=== PATIENT | female | born 2000 | race Two or more races ===

== ENCOUNTER 2024-07-05 11:58 | Emergency (ER) | payer SELFPAY ==
[2024-07-05 11:59] VITALS: BP 125/77; PULSE 57; RESP 14; TEMP 36.7; O2SAT 100; BMI 24.0
--- NOTE | 2024-07-05 12:21 | EX.ED.VIS.HA ---
HPI <RIGOBERTO Pacheco - Last Filed: 07/05/24 14:25> History of Present Illness Chief Complaint: Headache Narrative Narrative: 23-year-old female presents with a headache. Her spouse interprets. Over the last few weeks she has had an intermittent headache that can be in both temples or the occipital region. She has been to urgent care twice and he shows me a paper where she was treated with ibuprofen and an IM Benadryl shot. She was last treated 4 days ago and the headache resolved but it came back last night and is gradually worsened throughout the day with an episode of vomiting. She tried aspirin without relief. No visual changes or focal motor or sensory changes. No fever, chills, neck pain, or infectious symptoms. They were told by the urgent care if she gets a headache again to be seen in the emergency room. Patient moved here from [facility] 2 months ago. She did have mild headaches back then but spouse states they have gotten worse since moving here. She is not on any prescription medications. PFSH <RIGOBERTO Pacheco - Last Filed: 07/05/24 14:25> [facility] Medical History no medical history Home Medications ?Medication ?Instructions ?Recorded ?Last Taken ?Type NK 07/05/24 Unknown History Allergy/AdvReac Type Severity Reaction Status Date / Time No Known Allergies Allergy Verified 07/05/24 11:59 Surgical History no surgical history Social History Smoking Status: Never smoker ROS <RIGOBERTO Pacheco - Last Filed: 07/05/24 14:25> ROS ED ROS Narrative Constitutional: Negative for fever, chills, malaise. Eyes: Negative for visual change. GI: Positive for nausea, vomiting. Neuro: Positive for headache. EXAM <RIGOBERTO Pacheco - Last Filed: 07/05/24 14:25> Physical Exam Narrative Exam Narrative: CONST: Patient sitting in no acute distress. EYES: Normal inspection. PERRL, EOMI. ENT: Normal inspection, moist mucous membranes. NECK: Normal inspection. No meningismus. RESP: No respiratory distress, CTAB. CVS: Regular rate and rhythm, no murmur, no gallop. SKIN: Color normal, no rash, warm, dry, intact. EXTREMITIES: Normal appearance, no pedal edema. NEURO: Alert and answering questions appropriately with her spouse interpreting. Follows commands, moving all extremities, normal finger-nose and [id number]. PSYCH: Normal affect. Const Vital Signs: 07/05/24 11:59 Temperature 98.1 F Temperature Source Temporal Pulse Rate 57 L Respiratory Rate 14 Blood Pressure 125/77 H Blood Pressure Mean 93 Pulse Ox 100 Oxygen Delivery Method Room Air <Dr. Kimo Fried, DO - Last Filed: 07/05/24 14:29> Physical Exam Const Vital Signs: 07/05/24 11:59 Temperature 98.1 F Temperature Source Temporal Pulse Rate 57 L Respiratory Rate 14 Blood Pressure 125/77 H Blood Pressure Mean 93 Pulse Ox 100 Oxygen Delivery Method Room Air MDM <Kaykay Salguero PA - Last Filed: 07/05/24 14:25> MDM MDM Narrative Medical decision making narrative: History gathered from: Patient, spouse Differential: Tension headache, migraine, intracranial process Patient presents with a bitemporal and occipital headache and nausea and vomiting that started last night. She reports history of similar headaches recently being treated at urgent care. She appears well and nontoxic and is afebrile and hemodynamically stable. She has a nonfocal neurological exam. She has no signs of meningitis/encephalitis or infectious symptoms. CT scan of the brain shows no acute findings. She was given a cocktail of IV Toradol, Compazine and Benadryl with improvement. She was discharged home in stable condition. Radiography Diagnostic Testing: Clinical Impression(s) from Imaging Studies Brain CT 07/05/24 13:17 IMPRESSION: Normal unenhanced CT scan of the brain. Electronically Signed: Travis Juarez MD at 13:55 EST Reading Location ID and State: [address] [place] [address] Tel , Service support , <Dr. Kimo Fried, DO - Last Filed: 07/05/24 14:29> MDM Radiography Diagnostic Testing: Clinical Impression(s) from Imaging Studies Brain CT 07/05/24 13:17 IMPRESSION: Normal unenhanced CT scan of the brain. Electronically Signed: Travis Juarez MD at 13:55 EST , Treatment and Re-Evaluation Narrative: I have personally performed a face to face assessment of the patient and have reviewed the VIKAS Note. I performed a substantive portion of the visit including all aspects of the following. My jacobs findings include: History: Patient presents with headache that became worse today. Patient states her headache was over the bilateral parietal areas initially. Patient states she went to urgent care and had injections. Patient states this relieved her pain. Patient states her headache today was more over the occipital area. Patient denies any nausea or vomiting. Patient denies any fevers or chills. Patient denies any neck or back pain. Patient denies any visual changes. Exam: Vital signs are stable. Patient was afebrile. Patient is in no acute distress. Cranial nerves II through XII are intact. Strength is 5/5 bilateral in the upper and lower extremities. There are no sensory deficits noted. Oral mucosa is pink and moist. Neck is supple. Trachea is midline. There is no JVD. Heart was regular rate and rhythm. Lungs are clear and equal bilaterally. Abdomen is soft. Bowel sounds are normal. There is no tenderness. Medical Decision Making: Differential diagnosis includes intracranial bleeding, migraine headache, and tension headache. CT scan of the brain will be obtained to assess for intracranial bleeding. Patient was given injection of Compazine, Benadryl, and Toradol. CT scan of the brain was obtained. There is no acute intracranial abnormality. This was interpreted by the radiologist and was also independently reviewed by myself. Patient was feeling better on reevaluation. Patient states her headache has resolved. Patient was instructed to rest in a dark quiet room. Patient was instructed to follow-up with her primary care physician in 5 to 7 days for further evaluation. Patient and family understood and were agreeable with the plan. All questions were answered. Discharge Plan Triage Chief Complaint: Headache ED Midlevel Provider: Kaykay Salguero ED Provider: Kimo Fried Dx/Rx/DC Orders Clinical Impression: Headache Instructions: ED, Migraine (Classical) Prescriptions: No Action NK Primary Care Provider: Care Physician,No Primary Referrals: Care Physician,No Primary [Primary Care Provider] - Activity Restrictions/Additional Instructions: Take Tylenol or ibuprofen as needed for headache. Print Language: Tuvaluan Disposition Disposition: Home, Self Care
[2024-07-05] MEDS: DiphenhydrAMINE 50 MG/ML Syringe 25 MG IV (12:37)
[2024-07-05] MEDS: Ketorolac 15 MG/ML Vial IV (12:39)
[2024-07-05] MEDS: proCHLORPERazine 10 MG/2 ML Vial 5 MG IV (12:40)
--- NOTE | 2024-07-05 13:17 | CT_ITS ---
STUDY: CT BRAIN WITHOUT CONTRAST REASON FOR EXAM: Female, 23 years old. headache RADIATION DOSAGE (If Supplied By Facility): CTDIvol = ( 44.99 ) mGy, DLP = ( 779.24 ) mGycm TECHNIQUE: Transaxial CT imaging of the brain was performed without administration of intravenous contrast material. Individualized dose optimization techniques were used for this CT. The protocol utilizes one or more of the following dose reduction techniques: automated exposure control, adjustment of mA and/or kV according to patient size,and/or use of iterative reconstruction technique. COMPARISON: No relevant priors. FINDINGS: Normal soft tissue structures. Normal calvarium. Normal size ventricles and extra-axial spaces for the patient''s age. Normal white matter tracts of the cerebral hemispheres. Normal basal ganglia and thalami. Normal brainstem. Normal cerebellum. There is no intracranial hemorrhage. There are no findings of an acute ischemic infarction. Normal visualized paranasal sinuses. CT/Brain/Head without Contrast IMPRESSION: Normal unenhanced CT scan of the brain. Electronically Signed: Travis Juarez MD at 13:55 EST ,
[2024-07-05 14:27] VITALS: BP 109/77; PULSE 59; RESP 16; TEMP 36.2; O2SAT 100
== END 2024-07-05 14:28 | disposition home or self-care (01) ==
PROVIDERS: Emergency Provider Emergency Medicine; Visit Provider Emergency Medicine
DX: R51.9 Headache, unspecified (principal)
CPT/HCPCS: 70450; 96374; 96375; 99283; A4216

== ENCOUNTER 2024-07-08 15:56 | Emergency (ER) | payer SELFPAY ==
[2024-07-08 15:57] VITALS: BP 134/73; PULSE 65; RESP 15; TEMP 36.4; O2SAT 100
--- NOTE | 2024-07-08 17:08 | EX.ED.VIS.HA ---
HPI History of Present Illness Chief Complaint: Headache Informant: patient and spouse/S.O. Limited: language barrier ( translates) Onset/Context/Timing Onset: Weeks (2-3) Context: Gradual and Onset Timing: Continuous Quality -Headache: Positive for Similar Prior Headaches (but worse, more persistent) Current Severity: Moderate Maximum Severity: Severe Worsened by: nothing Relieved by: nothing, tried aspirin Associated Symptoms/Injury Associated Symptoms: Positive for Nausea and Vomiting; Negative for Fever, Sore Throat, Sinus Pressure, Numbness, Tingling, Visual Changes, Blurred Vision, Photophobia or Visual Loss Injury - HERRERA: Negative for Direct Trauma Narrative Narrative: Presenting with recurrent headaches, present for weeks, seen in the ER treated, resolved but recurred soon thereafter and has been persistent again. Has had these in the past but not this persistent. No recent head trauma no fevers or chills no neck stiffness or confusion or focal neurologic symptoms. PFSH PFSH Medical History no medical history Home Medications ?Medication ?Instructions ?Recorded ?Last Taken ?Type metoclopramide HCl 10 mg tablet 10 mg PO Q6H PRN nausea or 07/08/24 Unknown Rx headache #12 tabs Allergy/AdvReac Type Severity Reaction Status Date / Time No Known Allergies Allergy Verified 07/08/24 15:59 Social History Smoking Status: Never smoker ROS ROS ED Constitutional Constitutional ED: Denies chills or fever(s) Eyes Eyes: Denies blurry vision, change in vision or diplopia ENT ENT ED: Denies rhinorrhea or sore throat Cardiovascular Cardiovascular: Denies chest pain or palpitations Respiratory/Chest Respiratory/Chest: Denies cough or dyspnea Gastrointestinal Gastrointestinal: Reports nausea and vomiting; Denies abdominal pain or diarrhea Genitourinary Genitourinary ED: Denies dysuria or hematuria Musculoskeletal Musculoskeletal: Denies back pain or neck pain Integumentary Denies abscess or rash Neurologic Neurologic: Reports headache(s); Denies paresthesias or weakness Psychiatric Psychiatric: Denies anxiety or suicidal thoughts EXAM Physical Exam Const Vital Signs: 07/08/24 15:57 07/08/24 17:57 Temperature 97.5 F L Temperature Source Temporal Pulse Rate 65 62 Respiratory Rate 15 14 Blood Pressure 134/73 H 112/74 Blood Pressure Mean 93 86 Pulse Ox 100 100 Oxygen Delivery Method Room Air Room Air Positive well nourished and well developed General Appearance ED: well developed and NAD HEENT Reports moist mucous membranes normocephalic and atraumatic Eyes PERRL and EOMs intact bilaterally Neck full ROM and supple Resp normal respiratory effort and clear to auscultation bilaterally Cardio regular rate, regular rhythm and no murmurs GI non-tender and non-distended Auscultation: normoactive bowel sounds Palpation: soft Back/Spine no CVA tenderness General Back: other FROM Extremity normal to inspection General Extremety ED: Negative for edema, pulses abnormal or tenderness General Extremity: Negative for edema or pulses abnormal Neuro oriented x3, CN's II-XII intact bilaterally and no sensory deficits noted Sensorium / Orientation: awake and alert Motor Exam: strength 5/5 throughout Skin no rashes or lesions noted and no wounds MDM MDM MDM Narrative Medical decision making narrative: I reviewed her prior visit that showed a CT that was unremarkable. She has a very benign physical exam right now and I do not think she needs repeat testing emergently. She was given Toradol, Reglan, Benadryl on reevaluation she is improved, she was then given a dose of Compazine 5 mg, and her headache is completely gone. Her vital signs are normal. She was also given Decadron 4 mg, I suspect these are migraines and that may help prevent recurrence. She was given someone to follow-up with that she does not have a primary care provider here. They are comfortable with that plan as well as a prescription for Reglan to use as needed. History & Record Review Additional record(s) reviewed:: Prior ED visit Discharge Plan Triage Chief Complaint: Headache ED Provider: Pasquale Strong Dx/Rx/DC Orders Clinical Impression: Headache Instructions: ED, Migraine (Classical) Prescriptions: New metoclopramide HCl 10 mg tablet 10 mg PO Q6H PRN (Reason: nausea or headache) Qty: 12 0RF Primary Care Provider: Care Physician,No Primary Referrals: Seema Fish Shantelle, [facility] [[facility]] - 3-5 Days if not improving Print Language: Konstantin Disposition Disposition: Home, Self Care
[2024-07-08] MEDS: 0.9% Normal Saline (1000mL) 1,000 ML 999 ML IV (17:35)
[2024-07-08] MEDS: dexAMETHasone 4 MG/ML Vial IV (17:36)
[2024-07-08] MEDS: Metoclopramide 10 MG/2 ML Vial 5 MG IV (17:36)
[2024-07-08] MEDS: Ketorolac 30 MG/ML Syringe IV (17:37)
[2024-07-08] MEDS: DiphenhydrAMINE 50 MG/ML Syringe 25 MG IV (17:38)
[2024-07-08 17:57] VITALS: BP 112/74; PULSE 62; RESP 14; O2SAT 100
[2024-07-08] MEDS: proCHLORPERazine 10 MG/2 ML Vial 5 MG IV (18:23)
[2024-07-08 19:23] VITALS: BP 119/58; PULSE 60; RESP 18; TEMP 36.7; O2SAT 99
== END 2024-07-08 19:23 | disposition home or self-care (01) ==
PROVIDERS: Emergency Provider Emergency Medicine; Visit Provider Emergency Medicine
DX: R51.9 Headache, unspecified (principal); R11.2 Nausea with vomiting, unspecified
CPT/HCPCS: 96361; 96374; 96375; 99283

== ENCOUNTER 2024-07-10 16:45 | Emergency (ER) | payer SELFPAY ==
[2024-07-10 16:47] VITALS: BP 141/73; PULSE 100; RESP 18; TEMP 37; O2SAT 100; BMI 26.2
--- NOTE | 2024-07-10 17:06 | EX.ED.DYSGE1 ---
HPI History of Present Illness Chief Complaint: General Illness Detail of Chief Complaint: Headache Informant: patient Narrative Narrative: Patient presents emergency department with complaint of a headache. Patient states this is her third visit to the emergency department in the last week for same. She came from [facility] about 3 months ago. In [place] she would have occasional headaches. History comes from her who speaks Setswana. Patient denies any falls or head injuries. She has not had fever or cough or recent illness. Today she took some Reglan and that seemed to make her headache better and now is just minimal but she feels shaky. Patient had Reglan that she took at home and she took 2 tablets and then began feeling more shaky. PFSH PFSH Home Medications ?Medication ?Instructions ?Recorded ?Last Taken ?Type metoclopramide HCl 10 mg tablet 10 mg PO Q6H PRN nausea or 07/08/24 Unknown Rx headache #12 tabs promethazine 25 mg tablet 25 mg PO Q6H PRN nausea and 07/10/24 Unknown Rx vomiting #10 tabs Allergy/AdvReac Type Severity Reaction Status Date / Time No Known Allergies Allergy Verified 07/08/24 15:59 Social History Smoking Status: Never smoker ROS ROS ED Review of Systems ROS Unobtainable: other Constitutional Constitutional ED: Reports lethargy; Denies chills, fever(s), sweats or weight loss Eyes Eyes: Denies blurry vision, change in vision or diplopia ENT ENT ED: Denies rhinorrhea or sore throat Cardiovascular Cardiovascular: Denies chest pain, orthopnea or racing heartbeat Respiratory/Chest Respiratory/Chest: Denies cough, dyspnea, dyspnea on exertion, orthopnea or sputum Gastrointestinal Gastrointestinal: Reports nausea; Denies abdominal pain, diarrhea or vomiting Genitourinary Genitourinary ED: Denies dysuria, hematuria or urinary frequency Musculoskeletal Musculoskeletal: Denies arthralgias, back pain, myalgias or neck pain Integumentary Denies abscess, Abrasions or rash Neurologic Neurologic: Reports headache(s); Denies weakness Psychiatric Psychiatric: Denies anxiety, depression or suicidal thoughts Endocrine Endocrinology: Denies polydipsia, polyphagia or polyuria Hematologic/Lymphatic Hematologic/Lymphatic: Denies easy bleeding, easy bruising or lymphadenopathy Allergic/Immunologic Allergic/Immunologic ED: Denies mouth swelling, tongue swelling or urticaria EXAM Physical Exam Const Vital Signs: 07/10/24 16:47 07/10/24 17:43 Temperature 98.6 F Temperature Source Oral Pulse Rate 100 Respiratory Rate 18 Respiratory Effort Normal Non-Labored Respiratory Pattern Normal Blood Pressure 141/73 H Blood Pressure Mean 95 Pulse Ox 100 Oxygen Delivery Method Room Air Positive well nourished and well developed General Appearance ED: well developed and NAD HEENT Reports TM's clear and moist mucous membranes normocephalic and atraumatic; Negative for trauma or tenderness Tympanic Membrane ED: Yes TM's clear Eyes PERRL and EOMs intact bilaterally General Eye ED: Negative for pale conjunctiva or scleral icterus Neck no lymphadenopathy, supple and no JVD General: Negative for tenderness Chest Wall inspection of chest normal and palpation of chest normal Chest: Negative for tenderness Resp normal respiratory effort and clear to auscultation bilaterally Effort and Inspection: Negative for respiratory distress or pain with movement Auscultation: Negative for rhonchi, wheezes or diminished lung sounds Cardio regular rate, regular rhythm, S1 normal heart sound, S2 normal heart sound and no murmurs Peripheral Pulses: pulses 2+ throughout GI normal to inspection, nondistended, normoactive bowel sounds, soft to palpation, non-tender, non-distended and no masses Back/Spine no CVA tenderness and no thoracic nor lumbar tenderness Extremity normal to inspection General Extremety ED: Negative for edema General Extremity: Negative for edema Neuro oriented x3, CN's II-XII intact bilaterally, no sensory deficits noted and gait normal Neuro Narrative: Finger-nose and heel whipple testing within normal limits, negative Romberg, negative for drift, fundi benign Sensorium / Orientation: awake, alert, oriented to person, oriented to place and oriented to time Motor Exam: strength 5/5 throughout and strength abnormal Psych mental status grossly normal Skin no rashes or lesions noted and no wounds MDM MDM MDM Narrative Medical decision making narrative: Patient with a headache that she has had for about 3 weeks now off-and-on. Third visit for this. She did take Reglan twice today and feels shaky and jittery. Her headaches feeling improved. I did evaluate her prior visits and she did have a CT scan of her brain that was unremarkable. I do not feel she needs any further imaging. I suspect shakiness may be related to Reglan reaction. Will place an IV and give IV fluids as well as Toradol and Benadryl. Will check some basic labs. CBC with differential white count of 7.1 with hemoglobin 12 and platelet count of 187. Chemistries unremarkable. LFTs were normal. hCG was negative. I did obtain COVID flu and RSV testing that was negative. While in the department I did give her 45 mg of Benadryl IV as well as Toradol and a liter of fluid and her symptoms completely resolved. At this point I suspect likely she is having migraines and having side effects related to the Reglan. I recommended that he discontinue the Reglan. I will write a prescription for Phenergan as needed for nausea. Advised to follow-up with primary care physician on-call for no doc within next 3 to 5 days. Lab Data Attestation: I reviewed the patient's lab results. Labs: Laboratory Results - last 24 hr 07/10/24 17:21 WBC 7.1 RBC 4.41 Hgb 12.0 Hct 36.8 L MCV 83.4 MCH 27.2 MCHC 32.6 RDW Std Deviation 39.9 RDW Coeff of Nikita 13.2 Plt Count 187 MPV 11.9 Immature Gran % (Auto) 0.100 Neut % (Auto) 41.3 L Lymph % (Auto) 48.9 H [place] % (Auto) 6.9 Eos % (Auto) 2.0 Baso % (Auto) 0.8 Absolute Neuts (auto) 2.9 Absolute Lymphs (auto) 3.46 Nucleated RBC % 0 Sodium 141 Potassium 3.9 Chloride 111 H Carbon Dioxide 24.0 Anion Gap 6 BUN 14 Creatinine 0.73 Estim Creat Clear Calc 109.35 Est GFR (MDRD) Af Amer 125 Est GFR (MDRD) Non-Af 103 BUN/Creatinine Ratio 19.1 Glucose 86 Calcium 9.5 Total Bilirubin 0.20 AST 19 ALT 25 Alkaline Phosphatase 37 L Total Protein 7.8 Albumin 4.2 Globulin 3.6 Albumin/Globulin Ratio 1.2 Serum , Qual NEGATIVE Discharge Plan Triage Chief Complaint: General Illness ED Provider: Michi Cisneros Dx/Rx/DC Orders Clinical Impression: Migraine, Drug side effects Instructions: ED ADVERSE DRUG REACTION Allergic, ED, Migraine (Classical) Prescriptions: New promethazine 25 mg tablet 25 mg PO Q6H PRN (Reason: nausea and vomiting) Qty: 10 0RF No Action metoclopramide HCl 10 mg tablet 10 mg PO Q6H PRN (Reason: nausea or headache) Qty: 12 0RF Primary Care Provider: Care Physician,No Primary Referrals: Kimo Alvarez MD [Med Staff - [employer]] - 3-5 Days Care Physician,No Primary [Primary Care Provider] - Activity Restrictions/Additional Instructions: Stop taking the Reglan as I believe this is making her jittery and anxious. Print Language: Stateless Disposition Disposition: Home, Self Care
[2024-07-10] MEDS: 0.9% Normal Saline (1000mL) 1,000 ML 1000 ML IV (17:20)
[2024-07-10] MEDS: Ketorolac 30 MG/ML Syringe IV (17:20)
[2024-07-10] MEDS: DiphenhydrAMINE 50 MG/ML Syringe 25 MG IV (17:21)
[2024-07-10 17:31] LABS: Absolute Lymphocyte Count 3.46 X10^3/uL (0.83-4.51); Absolute Neutrophil Count 2.9 X10^3/uL (2.0-7.7); Basophil# 0.06 X10^3/uL; Basophil% 0.8 % (0-1); Eosinophil# 0.14 X10^3/uL; Hematocrit 36.8 % (37-47); Lymphocyte # 3.46 X10^3/ul (0.83-4.51); Lymphocyte % 48.9 % (19-41); Mean Corp Hgb Conc 32.6 g/dL (32-36); Mean Corpuscular Hgb 27.2 pg (27.0-32.0); Mean Corpuscular Volume 83.4 fL (81-99); Mean Platelet Vol. 11.9 fl (6.2-12.0); Monocyte# 0.49 X10^3/uL; Monocyte% 6.9 % (0-10); NRBC Flagged by Analyzer 0 % (0-5); Neutrophil # 2.91 X10^3/uL (2.7-7.7); Neutrophil % 41.3 % (47-70); Platelet Count 187 K/mm3 (150-450); RBC Distribution Width CV 13.2 % (11.6-14.6); RBC Distribution Width SD 39.9 fl (35.1-43.9); Red Blood Count 4.41 M/mm3 (4.2-5.4); White Blood Count 7.1 K/mm3 (4.4-11.0)
[2024-07-10 17:44] LABS: Internal QC Validated? YES +Cl - CLEAR BKGD; Pregnancy, Serum, hCG Quali. NEGATIVE Negative
[2024-07-10 17:48] LABS: ALB/GLOB Ratio 1.2 RATIO (0.9-2.4); AST(SGOT) 19 U/L (15-37); Alanine Aminotransfer ALT/SGPT 25 U/L (13-56); Albumin, Serum 4.2 g/dL (3.2-5.0); Alkaline Phosphatase 37 U/L (45-117); Anion Gap 6 (5-15); BUN 14 mg/dL (7-18); BUN/Creat Ratio 19.1 RATIO (10-20); Calcium,Total 9.5 mg/dL (8.5-10.1); Chloride 111 mmol/L (98-107); Creatinine, Serum 0.73 mg/dL (0.55-1.02); EST Glomerular Filtration Rate 103 mL/min (>60); Est Glom Filt Rate - Afr Amer 125 mL/min (>60); Estimated Creatinine Clearance 109.35 ml/min; Globulin 3.6 g/dL (2.2-4.2); Glucose 86 mg/dL (74-106); Potassium 3.9 mmol/L (3.5-5.1); Protein, Total 7.8 g/dL (6.4-8.2); Sodium Level 141 mmol/L (136-145)
[2024-07-10 18:46] VITALS: PULSE 75; RESP 19; O2SAT 97
[2024-07-10 19:32] VITALS: PULSE 77; RESP 18; TEMP 37.2; O2SAT 97
== END 2024-07-10 19:34 | disposition home or self-care (01) ==
PROVIDERS: Emergency Provider Emergency Medicine; Visit Provider Emergency Medicine
DX: G43.909 Migraine, unspecified, not intractable, without status migrainosus (principal); T45.0X5A Adverse effect of antiallergic and antiemetic drugs, initial encounter
CPT/HCPCS: 80053; 84703; 85025; 87631; 96361; 96374; 96375; 99284; A4216